=== PATIENT | male | born 1955 | race Caucasian/White ===

== ENCOUNTER 2016-03-16 10:45 | Emergency (ER) | payer OTHER ==
--- NOTE | 2016-03-16 11:13 | PROVIDER DOCUMENTATION ---
HPI-Respiratory General - General Chief Complaint: Shortness of Breath Stated Complaint: COPD/SOB Time Seen by Provider: 03/16/16 11:06 Source: patient Allergies/Adverse Reactions: Patient Allergies Allergy/AdvReac Type Severity Reaction Status Date / Time Penicillins Allergy Severe HIVES Verified 03/16/16 12:57 Home Medications: Tiotropium [place] Inhaler [Spiriva] 1 puff INH RTDAILY 07/29/13 Albuterol 2.5MG/Ipratrop 0.5MG [Duoneb (A & A)] 3 ml INH RTQ4H PRN 08/22/14 Fluticasone/Salmeterol [Advair 500-50 Diskus] 1 each IH QAM 08/22/14 Lisinopril/Hydrochlorothiazide [Zestoretic 20-12.5 mg Tablet] 2 tab PO QAM 08/22 Buprenorphine/Naloxone S.l. [Suboxone 2 mg/0.5 mg] 1 each SL QAM 02/18/16 Omeprazole [Prilosec] 40 mg PO QAM 02/18/16 - History of Present Illness-Resp Nature of Presenting Problem: patient is a 61 yo M that presents to the ER with shortness of breath that has gotten worse over the past few days. denies fever/chills, chest pain. history of COPD. has used breathing tx at home with no relief Quality of Pain: reports: tightness Severity in ED: reports: moderate Onset/Duration: reports: gradual, 3 days ago, 4 days ago Timing: reports: still present, getting worse Context: denies: recent URI, out of meds Cough Quality/Degree: reports: mild, moderate, dry cough Episode Frequency: chronic episodes Current Respiratory Medication Therapy: Initiated see nurses note Modifying Factors: worse with: exertion, coughing, lying down Associated Symptoms: reports: cough, shortness of breath, short of breath, wheezing. denies: fever/chills, flu-like symptoms, nasal congestion, nasal drainage Similar Symptoms Previously?: Yes Recently seen or treated by another doctor?: No Review of Systems - Adult - REVIEW OF SYSTEMS - ADULT Constitutional: denies: chills, fever Eyes: reports: no symptoms reported Ears, Nose, Mouth & Throat: denies: ear pain, sinus problem, throat pain, throat swelling Cardiovascular: denies: chest pain, palpitations Respiratory: reports: chronic cough, cough, dyspnea on exertion, shortness of breath, wheezing Gastrointestinal: denies: abdominal pain, diarrhea, nausea, vomiting Genitourinary: reports: no symptoms reported Musculoskeletal: reports: no symptoms reported Integumentary: reports: no symptoms reported Neurological: reports: no symptoms reported Psychiatric: reports: no symptoms reported Endocrine: reports: no symptoms reported Hematologic/Lymphatic: reports: no symptoms reported Allergic/Immunologic: reports: no symptoms reported All Other Systems: Reviewed and Negative Past History - Adult - PAST MEDICAL HISTORY-ADULT Review of Records: reports: Old Records Reviewed, Nursing Assessment Review, Medications Reviewed Cardiovascular: reports: HTN Respiratory: reports: COPD Other Conditions: reports: MRSA - PRIOR SURGERIES/PROCEDURES Surgical/Procedure History: reports: orthopedic (extremity) (clavicle) - PRIOR HOSPITALIZATIONS Prior Hospitalizations: reports: none - IMMUNIZATION STATUS Childhood Immunizations: See Nurse Assessment Flu Vaccine: See Nurse Assessment - FAMILY HISTORY Family History: reviewed, not pertinent - SOCIAL HISTORY Smoking: quit greater than 1 year, cigarettes Alcohol Use Frequency: occasionally Living Situation: family Physical Exam-General - PHYSICAL EXAM-ADULT Initial Vital Signs Reviewed: Yes - CONSTITUTIONAL General Appearance: alert, mild distress, moderate distress - EYES Eyes: PERRL/EOMI, pink conjunctivae - HEAD, EARS, NOSE, MOUTH & THROAT HENMT: normocephalic/atraumatic, moist mucous membranes, normal ENT inspection - NECK Neck: full range of motion, normal inspection. negative: lymphadenopathy - RESPIRATORY Respiratory: no accessory muscle use, respiratory distress (mild), decreased breath sounds, wheezing - CARDIOVASCULAR Cardiovascular: regular rate, rhythm, no JVD, no murmur, tachycardia - GASTROINTESTINAL (ABDOMEN) Abdominal Exam: normal bowel sounds, non tender, soft, no organomegaly, no pulsatile mass - MUSCULOSKELETAL Back Exam: no CVA tenderness, no vertebral tenderness Extremity: normal range of motion, normal inspection, no pedal edema, normal capillary refill, pelvis stable - SKIN Integumentary: normal color, warm/dry - NEUROLOGIC Neurologic: grossly normal, no motor/sensory deficits - PSYCHIATRIC Psych/Mental Status: normal mood/affect, normal thought content, normal thought process, oriented x 3 Progress - PLAN OF CARE/RESULTS Progress/Plan/Lab Results: plan of care-labs, meds, cxr, breathing tx Vital Signs Temp Pulse Resp BP Pulse Ox 03/16/16 12:29 83 18 94 L 03/16/16 11:35 100 H 21 186/105 89 L 03/16/16 10:54 98.1 F 108 H 24 199/142 95 Penicillins Allergy (Severe, Verified 03/16/16 12:57) HIVES Tiotropium [place] Inhaler [Spiriva] 1 puff INH RTDAILY 07/29/13 Albuterol 2.5MG/Ipratrop 0.5MG [Duoneb (A & A)] 3 ml INH RTQ4H PRN 08/22/14 Fluticasone/Salmeterol [Advair 500-50 Diskus] 1 each IH QAM 08/22/14 Lisinopril/Hydrochlorothiazide [Zestoretic 20-12.5 mg Tablet] 2 tab PO QAM 08/22 Buprenorphine/Naloxone S.l. [Suboxone 2 mg/0.5 mg] 1 each SL QAM 02/18/16 Omeprazole [Prilosec] 40 mg PO QAM 02/18/16 Laboratory 03/16/16 03/16/16 03/16/16 11:25 11:25 11:25 WBC RBC Hgb Hct MCV MCH MCHC RDW Std Deviation Plt Count MPV Immature Gran % (Auto) Neut % (Auto) Lymph % (Auto) [place] % (Auto) Eos % (Auto) Baso % (Auto) Immature Gran # (Auto) Neut # (Auto) Lymph # (Auto) [place] # (Auto) Eos # (Auto) Baso # (Auto) PT 10.7 INR 1.01 PTT (Actin FS) 28.7 Sodium Potassium Chloride Carbon Dioxide Anion Gap BUN Creatinine Estimated GFR/1.73 m2 BUN/Creatinine Ratio Glucose Calculated Osmolality Calcium Total Bilirubin AST ALT Alkaline Phosphatase Creatine Kinase Troponin T < 0.010 Total Protein Albumin Globulin Albumin/Globulin Ratio Plasma Lactate 1.3 03/16/16 03/16/16 11:25 11:25 WBC 7.49 RBC 3.80 L Hgb 12.0 L Hct 36.9 L MCV 97.1 MCH 31.6 H MCHC 32.5 L RDW Std Deviation 12.1 Plt Count 299 MPV 8.8 Immature Gran % (Auto) 0.0 Neut % (Auto) 71.4 Lymph % (Auto) 11.5 L [place] % (Auto) 15.6 H Eos % (Auto) 1.1 Baso % (Auto) 0.4 Immature Gran # (Auto) 0.00 Neut # (Auto) 5.35 Lymph # (Auto) 0.86 L [place] # (Auto) 1.17 H Eos # (Auto) 0.08 Baso # (Auto) 0.03 PT INR PTT (Actin FS) Sodium 132 L Potassium 3.8 Chloride 93 L Carbon Dioxide 26 Anion Gap 13 BUN 9 Creatinine 1.0 Estimated GFR/1.73 m2 > 60 BUN/Creatinine Ratio 9 Glucose 122 H Calculated Osmolality 265 Calcium 9.0 Total Bilirubin 0.46 AST 22 ALT 15 Alkaline Phosphatase 78 Creatine Kinase 115 Troponin T Total Protein 7.9 Albumin 4.1 Globulin 3.8 Albumin/Globulin Ratio 1.1 Plasma Lactate Orders Category Date Time Status Cardiac Monitoring DIRECTED Care 03/16/16 11:01 Active IV Insertion ORDERED Care 03/16/16 11:01 Active Notify MD of + Sepsis Screen NOW Care 03/16/16 11:01 Active CHEST-2 VIEWS [RAD] Stat Exams 03/16/16 11:01 Completed BLOOD CULTURE [BLDCUL] Stat Lab 03/16/16 11:27 Results CBC WITH DIFF [HEME] Stat Lab 03/16/16 11:25 Completed CK PROFILE [SP CHEM] Stat Lab 03/16/16 11:25 Completed COMPREHENSIVE METABOLIC PANEL [CHEM] Stat Lab 03/16/16 11:25 Completed LACTATE, PLASMA [CHEM] Stat Lab 03/16/16 11:25 Completed PROTIME WITH INR [COAG] Stat Lab 03/16/16 11:25 Completed PTT [COAG] Stat Lab 03/16/16 11:25 Completed TROPONIN T Stat Lab 03/16/16 11:25 Completed URINALYSIS W/POSS RFLX CULT [URINALYSIS] Stat Lab 03/16/16 11:01 Uncollected Albuterol 2.5MG/Ipratrop 0.5MG [Duoneb (A & A)] Med 03/16/16 11:14 Discontinued 3 ml INH NOW ONE Albuterol 2.5MG/Ipratrop 0.5MG [Duoneb (A & A)] Med 03/16/16 12:15 Discontinued 3 ml INH NOW ONE Methylprednisolone Sod Succ [Solu-Medrol] Med 03/16/16 11:16 Discontinued 125 mg IV NOW ONE Aerosol Treatments Routine Oth 03/16/16 11:14 Completed Aerosol Treatments Routine Oth 03/16/16 12:15 Completed Aerosol Treatments Stat Oth 03/16/16 11:14 Completed Aerosol Treatments Stat Oth 03/16/16 12:15 Completed Oxygen Device Stat Oth 03/16/16 11:01 Active EKG [EKG] Stat Ther 03/16/16 11:05 Draft pt will be d/c home f/u with pcp, rx given, pt was clinically stable, pt understood results and instructions. - REASSESSMENT Reassessment #1 Time Reassessed: 12:57 Status: improving Reassessment Comment: feels better, wants to go home - EKG 1 Time of EKG reading by physician:: 11:10 EKG Read and Signed by:: Aure Helton EKG Interpretation (*Must complete 3 of following elements*): Normal Rate: 97 Rhythm: NSR [place]: normal QRS: normal [place] Interval: normal ST Wave: normal - XRAY 1 XRAY Study: Chest Impression: Abnormal XRAY Interpretation: stable chest, azygous lobe Departure - Departure Time of Disposition Order: 12:57 DIAGNOSIS: COPD with exacerbation Disposition: HOME 01 Certified Medical Emergency: Emergent Condition: Stable Additional Instructions: ED Follow Up Instructions: You have been treated by a care provider in the Emergency Department. These instructions are being provided to you so you can have an understanding of how to care for yourself upon discharge. Upon discharge from the Emergency Department, you are responsible for making arrangements for follow-up care by a physician of your choice. Take all prescribed medications as directed. Return to the Emergency Department immediately for any new or worsening symptoms. You may call the Physician Referral phone number at [phone] to obtain a list of Physicians who are taking new patients. Instructions: Chronic Obstructive Pulmonary Disease Exacerbation, [id number] Attestation - Scribe Verification/Attestation Scribe:: Marito Aceves Acting as Scribe for:: Mckenzie Arreola Scribe documention review:: This chart was documented by a scribe and accurately reflects the service the provider performed and the decisions made by the provider. Physician Attestation - Physician Attestation I, the provider, attest to the following statement:: Mckenzie Arreola Physician documentation Attestation:: This documentation recorded by the scribe accurately reflects the service I personally performed and the decisions made by me.
[2016-03-16] MEDS ORDERED: DUONEB (A & A) INH ONE ×2 (11:14→12:15)
[2016-03-16] MEDS ORDERED: SOLU-MEDROL IV ONE ×2 (11:16→13:00)
[2016-03-16 11:37] VITALS: BP 186/105
[2016-03-16 11:39] LABS: MANUAL DIFF NEEDED? NO
--- NOTE | 2016-03-16 11:44 | EKG Report ---
Test Performed on : 03/16/2016 11:10:20 AM Test Reason : SOB Blood Pressure : / mmHG Vent. Rate : 097 BPM Atrial Rate : 097 BPM P-R Int : 160 ms QRS Dur : 082 ms QT Int : 330 ms P-R-T Axes : 048 013 053 degrees QTc Int : 419 ms Normal sinus rhythm. Normal ECG When compared with ECG of 16-MAR-2016 11:09, (Unconfirmed) No significant change was found Unconfirmed Result
[2016-03-16 11:58] LABS: BASO% 0.4 % (0.0-0.8); EOS# 0.08 X1000 (0.0-0.7); EOS% 1.1 % (0.0-10.0); HEMATOCRIT 36.9 % (42.0-52.0); LYMPH# 0.86 X1000 (1.2-3.4); LYMPH% 11.5 % (20.5-51.1); MCH 31.6 PG (27-31); MCHC 32.5 g/dL (33-37); MCV 97.1 FL (81-99); MONO# 1.17 X1000 (0.11-0.59); MONO% 15.6 % (1.7-9.3); MPV 8.8 FL (7.4-10.4); NEUT% 71.4 % (42.2-75.2); PLT 299 X1000 (130-400)
[2016-03-16 12:08] LABS: AGAP 13; ALBUMIN 4.1 g/dL (3.5-5.0); ALKALINE PHOSPHATASE 78 U/L (32-122); BUN 9 mg/dL (8-22); CHLORIDE 93 mmol/L (98-107); CK PROFILE 115 U/L (24-204); COSMO 265; GOT 22 U/L (10-34); GPT 15 U/L (10-44); POTASSIUM 3.8 mmol/L (3.5-5.1); SODIUM 132 mmol/L (136-145); TCO2 26 mmol/L (25-35); TOTAL BILIRUBIN 0.46 mg/dL (0.20-1.00); TOTAL PROTEIN 7.9 g/dL (6.3-8.3)
[2016-03-16 12:10] LABS: INR 1.01; PROTIME 10.7 Seconds (9.2-11.7); PTT 28.7 Seconds (22.0-36.0)
--- NOTE | 2016-03-16 12:35 | Diag Imaging Result Document ---
PROCEDURE NAME: CHEST-2 VIEWS - 03/16/2016 TWO VIEWS OF THE CHEST: FINDINGS: There is an azygous lobe. There has been no significant change in the appearance of the chest since the previous study of 02/18/2016. IMPRESSION: Stable chest.
== END 2016-03-16 13:12 | disposition home or self-care (01) ==
LOC: ED 10:45
DX: J44.1 Chronic obstructive pulmonary disease with (acute) exacerbation (principal); R06.02 Shortness of breath; R05 Cough; R06.2 Wheezing; R06.00 Dyspnea, unspecified; R00.0 Tachycardia, unspecified; I10 Essential (primary) hypertension; Z79.51 Long term (current) use of inhaled steroids; Z79.899 Other long term (current) drug therapy; Z86.14 Personal history of Methicillin resistant Staphylococcus aureus infection; Z87.891 Personal history of nicotine dependence
CPT/HCPCS: 71020; 80053; 82550; 83605; 84484; 85025; 85610; 85730; 87040; 93005; 94640; 96374; 96376; J2930

== ENCOUNTER 2016-08-25 03:42 | Inpatient (IN) ==
[2016-08-26 14:05] VITALS: BP 133/79
== END 2016-08-26 15:55 | disposition home or self-care (01) ==
LOC: ED 03:42 → 3N 06:27 → SUATTDRO 06:27
PROVIDERS: ATTEND Emergency Medicine

== ENCOUNTER 2016-09-23 15:52 | Inpatient (IN) ==
[2016-09-23] MEDS ORDERED: ATROVENT NEB INH ONE (16:00)
[2016-09-23] MEDS ORDERED: SOLU-MEDROL IV ONE (16:00)
[2016-09-23] MEDS ORDERED: ALBUTEROL NEB INH ONE (16:00)
[2016-09-23 16:37] LABS: MANUAL DIFF NEEDED? NO
[2016-09-23 16:43] LABS: ALLEN TEST YES; BE 6.6 mmoll (-3.0-3.0); BLOOD TYPE ARTERIAL; DRAW SITE R RADIAL; METHB 0.8 % (0.0-1.5); O2(CT) 17.8 mL/dL (15.0-23.0); PO2(98.6) 88 mmHg (60-100); SAMPLE BLOOD; SAO2 97.9 % (95.0-100.0); THB 13.3 g/dL (11.5-17.4); pH(98.6) 7.32 (7.35-7.45)
[2016-09-23 16:46] LABS: MODALITY CANNULA; PCO2(98.6) 68 mmHg (35-45)
[2016-09-23 16:49] LABS: BASO% 0.8 % (0.0-0.8); EOS# 0.76 X1000 (0.0-0.7); EOS% 9.1 % (0.0-10.0); HEMATOCRIT 37.9 % (42.0-52.0); HEMOGLOBIN 12.5 g/dL (14.0-18.0); IMM GRAN# 0.02 X1000 (0.0-0.04); IMM GRAN% 0.2 % (0.0-0.5); LYMPH# 1.41 X1000 (1.2-3.4); LYMPH% 16.8 % (20.5-51.1); MCH 31.9 PG (27-31); MCV 96.7 FL (81-99); MONO# 0.64 X1000 (0.11-0.59); MONO% 7.6 % (1.7-9.3); NEUT% 65.5 % (42.2-75.2); PLT 340 X1000 (130-400); RBC 3.92 XMIL (4.7-6.1)
--- NOTE | 2016-09-23 16:50 | Diag Imaging Result Doc PS360 ---
EXAM: CHEST-PORTABLE HISTORY: dyspnea TECHNIQUE: AP erect portable at 1648 COMMENT: There is an azygos lobe. There is COPD. The costophrenic angles are not included on the image. Compared to 08/25/2016 there has been no significant change. IMPRESSION: COPD. Electronically signed by Onofre Flynn 09/23/2016 4:48 PM
[2016-09-23 16:55] LABS: INR 0.96; PROTIME 10.1 Seconds (9.2-11.7); PTT 30.1 Seconds (22.0-36.0)
[2016-09-23 17:04] LABS: AGAP 9; ALBUMIN 4.1 g/dL (3.5-5.0); ALKALINE PHOSPHATASE 78 U/L (32-122); BUN 12 mg/dL (8-22); CALCIUM 9.2 mg/dL (8.8-10.2); CHLORIDE 89 mmol/L (98-107); COSMO 261; GOT 19 U/L (10-34); GPT 13 U/L (10-44); POTASSIUM 4.4 mmol/L (3.5-5.1); SODIUM 130 mmol/L (136-145); TCO2 32 mmol/L (25-35); TOTAL PROTEIN 8.1 g/dL (6.3-8.3)
--- NOTE | 2016-09-23 17:10 | PROVIDER DOCUMENTATION ---
HPI-General Adult - General Chief Complaint: Shortness of Breath Stated Complaint: sob/copd Time Seen by Provider: 09/23/16 15:59 Source: patient, EMS Allergies/Adverse Reactions: Patient Allergies Allergy/AdvReac Type Severity Reaction Status Date / Time Penicillins Allergy Severe HIVES Verified 09/23/16 17:15 Home Medications: Home Medication List Medication Instructions Recorded Confirmed Last Taken Type Tiotropium [place] Inhaler 1 puff INH RTDAILY 07/29/13 09/23/16 09/23/16 History [Spiriva] Fluticasone/Salmeterol [Advair 1 each IH QAM 08/22/14 09/23/16 09/23/16 History 500-50 Diskus] Buprenorphine HCl/Naloxone HCl 12 mg PO Q12HR 03/18/16 09/23/16 09/23/16 History [Suboxone 8 mg/2 mg Sl Film] Lisinopril 40 mg PO DAILY 03/18/16 09/23/16 09/23/16 History Omeprazole [Prilosec] 20 mg PO DAILY@0700 03/18/16 09/23/16 09/23/16 History Hydrochlorothiazide 1 tab PO DAILY 05/30/16 09/23/16 09/23/16 History Albuterol 2.5MG/Ipratrop 0.5MG 3 ml INH Q4H PRN PRN #120 neb 08/26/16 09/23/16 09/23/16 Rx [Duoneb (A & A)] - History of Present Illness -Gen Adult Nature of Presenting Problems: pt presents complaining of two day history of dyspnea, wheeze. He endorses mild nonproductive cough. EMS states spo2 in 70s on arrival. 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 no cp, fever, back pain, LE edema, headache, vision problems. Using home nebs s relief. Location of Pain/Injury: reports: none Pain Radiation: reports: no radiation Quality of Pain: reports: none Timing: reports: getting worse Modifying Factors: improves with: nothing Associated Symptoms: reports: shortness of breath. denies: chest pain, cough, diarrhea, fever/chills, headaches, nausea, syncope, vomiting Similar Symptoms Previously?: Yes Recently seen or treated by another doctor?: No Review of Systems - Adult - REVIEW OF SYSTEMS - ADULT Constitutional: reports: no symptoms reported Eyes: reports: no symptoms reported Ears, Nose, Mouth & Throat: reports: no symptoms reported Cardiovascular: reports: no symptoms reported Respiratory: reports: see HPI Gastrointestinal: reports: no symptoms reported Genitourinary: reports: no symptoms reported Musculoskeletal: reports: no symptoms reported Integumentary: reports: no symptoms reported Neurological: reports: no symptoms reported Psychiatric: reports: no symptoms reported Endocrine: reports: no symptoms reported Hematologic/Lymphatic: reports: no symptoms reported Allergic/Immunologic: reports: no symptoms reported All Other Systems: Reviewed and Negative Past History - Adult - PAST MEDICAL HISTORY-ADULT Review of Records: reports: Old Records Reviewed, Nursing Assessment Review, Medications Reviewed, Social history reviewed & non-contributory. Major Childhood Illnesses: reports: denies history Cardiovascular: reports: HTN Respiratory: reports: COPD Gastrointestinal: reports: denies history Obstetrical/Gynecological: reports: denies history Genitourinary: reports: denies history Musculoskeletal: reports: denies history Neurological: reports: denies history Endocrine/Immune: reports: denies history Other Conditions: reports: MRSA - PRIOR SURGERIES/PROCEDURES Surgical/Procedure History: reports: orthopedic (extremity) (clavicle) - PRIOR HOSPITALIZATIONS Prior Hospitalizations: reports: none - IMMUNIZATION STATUS Childhood Immunizations: See Nurse Assessment Flu Vaccine: See Nurse Assessment - FAMILY HISTORY Family History: reviewed, not pertinent Physical Exam-General - PHYSICAL EXAM-ADULT Initial Vital Signs Reviewed: Yes - CONSTITUTIONAL General Appearance: mild distress. negative: appears well - EYES Eyes: PERRL/EOMI, pink conjunctivae - HEAD, EARS, NOSE, MOUTH & THROAT HENMT: normocephalic/atraumatic, moist mucous membranes - NECK Neck: non-tender, full range of motion - RESPIRATORY Respiratory: chest non-tender, decreased breath sounds, wheezing - CARDIOVASCULAR Cardiovascular: normal peripheral pulses, regular rate, rhythm, no edema - GASTROINTESTINAL (ABDOMEN) Abdominal Exam: normal bowel sounds - LYMPHATIC Lymphatic: no adenopathy - MUSCULOSKELETAL Back Exam: normal inspection Extremity: normal range of motion, non-tender. negative: calf tenderness Peripheral Pulses: radial (R): 2+, radial (L): 2+ - SKIN Integumentary: normal color, normal turgor, warm/dry - NEUROLOGIC Neurologic: grossly normal - PSYCHIATRIC Psych/Mental Status: normal mood/affect, normal thought process Progress - PLAN OF CARE/RESULTS Progress/Plan/Lab Results: Vital Signs - 8 hr 09/23/16 16:37 09/23/16 16:55 Temperature 98.2 F Pulse Rate 99 H 101 H Respiratory Rate 20 24 Blood Pressure 137/80 O2 Sat by Pulse Oximetry 95 96 Laboratory Results - last 24 hr 09/23/16 09/23/16 09/23/16 16:15 16:15 16:15 WBC 8.38 RBC 3.92 L Hgb 12.5 L Hct 37.9 L MCV 96.7 MCH 31.9 H MCHC 33.0 RDW Std Deviation 12.8 Plt Count 340 MPV 9.0 Immature Gran % (Auto) 0.2 Neut % (Auto) 65.5 Lymph % (Auto) 16.8 L [place] % (Auto) 7.6 Eos % (Auto) 9.1 Baso % (Auto) 0.8 Immature Gran # (Auto) 0.02 Neut # (Auto) 5.48 Lymph # (Auto) 1.41 [place] # (Auto) 0.64 H Eos # (Auto) 0.76 H Baso # (Auto) 0.07 PT 10.1 INR 0.96 PTT (Actin FS) 30.1 Specimen Type Sample Site pH pCO2 pO2 HCO3 Base Excess Oxyhemoglobin ABG O2 Sat (Calculated) ABG O2 Saturation ABG Carboxyhemoglobin ABG Methemoglobin Kyrie Test A-a O2 Difference Total Hemoglobin Lactate Liter Flow Blood Gas Modality FiO2 % Sodium 130 L Potassium 4.4 Chloride 89 L Carbon Dioxide 32 Anion Gap 9 BUN 12 Creatinine 0.9 Estimated GFR/1.73 m2 > 60 BUN/Creatinine Ratio 13 Glucose 104 Calculated Osmolality 261 Calcium 9.2 Total Bilirubin 0.30 AST 19 ALT 13 Alkaline Phosphatase 78 Troponin T Total Protein 8.1 Albumin 4.1 Globulin 4.0 Albumin/Globulin Ratio 1.0 Plasma Lactate 09/23/16 09/23/16 09/23/16 16:15 16:15 16:25 WBC RBC Hgb Hct MCV MCH MCHC RDW Std Deviation Plt Count MPV Immature Gran % (Auto) Neut % (Auto) Lymph % (Auto) [place] % (Auto) Eos % (Auto) Baso % (Auto) Immature Gran # (Auto) Neut # (Auto) Lymph # (Auto) [place] # (Auto) Eos # (Auto) Baso # (Auto) PT INR PTT (Actin FS) Specimen Type ARTERIAL Sample Site R RADIAL pH 7.32 L pCO2 68 H* pO2 88 HCO3 30.0 H Base Excess 6.6 H Oxyhemoglobin 95.0 ABG O2 Sat (Calculated) 17.8 ABG O2 Saturation 97.9 ABG Carboxyhemoglobin 2.20 ABG Methemoglobin 0.8 Kyrie Test YES A-a O2 Difference 112.0 Total Hemoglobin 13.3 Lactate 1.00 Liter Flow 5.0 Blood Gas Modality [place] FiO2 % 40.0 Sodium Potassium Chloride Carbon Dioxide Anion Gap BUN Creatinine Estimated GFR/1.73 m2 BUN/Creatinine Ratio Glucose Calculated Osmolality Calcium Total Bilirubin AST ALT Alkaline Phosphatase Troponin T < 0.010 Total Protein Albumin Globulin Albumin/Globulin Ratio Plasma Lactate 1.0 Orders Category Date Time Status Oxygen Therapy- ED Nursing DIRECTED Care 09/23/16 16:00 Active Saline Loc DIRECTED Care 09/23/16 16:00 Active cxr [CHEST-PORTABLE] [RAD] Stat Exams 09/23/16 16:05 Completed ABG [RESP] Routine Lab 09/23/16 16:25 Completed BLOOD CULTURE [BLDCUL] Stat Lab 09/23/16 16:20 Received CBC WITH DIFF [HEME] Stat Lab 09/23/16 16:15 Completed COMPREHENSIVE METABOLIC PANEL [CHEM] Stat Lab 09/23/16 16:15 Completed LACTATE, PLASMA [CHEM] Stat Lab 09/23/16 16:15 Completed PROTIME WITH INR [COAG] Stat Lab 09/23/16 16:15 Completed PTT [COAG] Stat Lab 09/23/16 16:15 Completed TROPONIN T Stat Lab 09/23/16 16:15 Completed Albuterol [Albuterol Neb] Med 09/23/16 16:00 Discontinued 7.5 mg INH NOW ONE Ipratropium [place] Neb [Atrovent Neb] Med 09/23/16 16:00 Discontinued 0.5 mg INH NOW ONE Methylprednisolone Sod Succ [Solu-Medrol] Med 09/23/16 16:00 Discontinued 125 mg IV NOW ONE Aerosol Treatments Stat Oth 09/23/16 16:00 Completed Pulse Oximetry Stat Oth 09/23/16 16:00 Active EKG [EKG] Stat Ther 09/23/16 16:00 Ordered case and plan of care discussed with Dr. Wang Result Diagrams: 09/23/16 16:15 09/23/16 16:15 - XRAY 1 XRAY Study: Chest Impression: See EMR Report XRAY Interpretation: COPD; NAF - CONSULTS/PCP/HOSPITALIST Notification #1 *Consult/PCP/Hospitalist*: Dr. Kirby Time Discussed: 17:25 Reason/Comments: hold abx Consult Disposition: Admit Departure - Departure Date of Disposition Decision: 09/23/16 Time of Disposition Decision: 17:26 DIAGNOSIS: COPD exacerbation Disposition: ADMITTED INPATIENT 09 Certified Medical Emergency: Emergent Condition: Stable - Critical Care Note This patient required my direct & personal management of CC.: No Attestation - Physician/ ANTHONY Attestation Patient care was provided by Advanced Practice Provider:: Yes Advanced Practice Provider:: Balta Carroll Advanced Practice Provider documentation review:: The Mid-level provider documentation, treatment plan and medical decision making was reviewed by the physician who agrees with all treatment and medical decision making by the MLP.
[2016-09-23] MEDS ORDERED: DUONEB (A & A) INH ONE (17:24)
[2016-09-23] MEDS ORDERED: TYLENOL PO PRN (19:21)
[2016-09-23] MEDS ORDERED: SUBOXONE 2 MG/0.5 MG SL SCH (19:45)
[2016-09-23] MEDS ORDERED: SUBOXONE 8 MG/2 MG SL SCH (21:00)
[2016-09-23] MEDS: SUBOXONE 8 MG/2 MG SL SCH (21:06)
[2016-09-23] MEDS: LEVAQUIN 500 MG/D5W 500 MG/100 ML IVPB IV SCH (21:06)
[2016-09-23] MEDS: SUBOXONE 2 MG/0.5 MG SL SCH (21:07)
[2016-09-23] MEDS: SOLU-MEDROL IV SCH (23:00)
[2016-09-23] MEDS: DUONEB (A & A) INH PRN (23:30)
[2016-09-24] MEDS: DUONEB (A & A) INH PRN ×5 (04:26→22:36)
[2016-09-24] MEDS: SOLU-MEDROL IV SCH ×6 (06:28→23:03)
[2016-09-24] MEDS: PRILOSEC PO SCH (06:29)
--- NOTE | 2016-09-24 06:32 | EKG Report ---
Test Performed on : 09/23/2016 4:42:03 PM Test Reason : dyspnea Blood Pressure : / mmHG Vent. Rate : 089 BPM Atrial Rate : 089 BPM P-R Int : 166 ms QRS Dur : 082 ms QT Int : 348 ms P-R-T Axes : 064 034 066 degrees QTc Int : 423 ms Normal sinus rhythm. Normal ECG When compared with ECG of 25-AUG-2016 04:11, No significant change was found Unconfirmed Result
--- NOTE | 2016-09-24 06:41 | HISTORY AND PHYSICAL ---
HISTORY OF PRESENT ILLNESS: This is a 61-year-old who presented with shortness of breath. States that for the last 2 days, he has become more short of breath and just gets short of breath going from room to room. He does have, I believe, home O2 and he has been wearing it. He has been taking his medicine as directed. He denies any fever or chills. No pleuritic pain. His cough has been whitish sputum, not really changing color. No blood in the sputum. PAST MEDICAL HISTORY: COPD, hypertension, hepatitis C, chronic opioid use. Last here on 08/25/2016. He has had frequent admissions. Also in past history, he has had a pericardial effusion in the past. PAST SURGICAL HISTORY: None. ALLERGIES: Penicillin. CURRENT MEDICATIONS: According to the list he brought, he is taking albuterol, DuoNebs. He is on Suboxone 8/2 sublingual film 12 mg p.o. q.8 hours, Advair 500/50 one puff q.a.m., hydrochlorothiazide 1 tablet daily, lisinopril 40 mg a day, Prilosec 20 mg a day, and Spiriva 1 mg daily. SOCIAL HISTORY: Former smoker. History of social alcohol. Chronic opioid use for pain. FAMILY HISTORY: Positive for coronary artery disease. REVIEW OF SYSTEMS: General: Denies any weight gain or loss. No fever or chills. HEENT: Unremarkable. Respiratory: No increased work of breathing or dyspnea. Cardiovascular: No chest pain or tachy palpitation. GI/: No significant complaints. Respiratory: As noted above, he had increased shortness of breath in the last 2 days with whitish sputum. No pleuritic pain. PHYSICAL EXAMINATION: VITAL SIGNS: Today, temperature 98.2 degrees, pulse 92, respirations 18, blood pressure 118/80, O2 saturation 95%. HEENT: Pupils are equal and round. LUNGS: Clear in all lung hope. Decreased breath sounds in both bases. Prolonged expiratory phase 1.1, to inspiratory phase 1.5 to 1. CARDIOVASCULAR EXAMINATION: Regular rhythm and rate without murmur or S3. ABDOMEN: Soft. SKIN: Warm and dry. WEIGHT AND HEIGHT: Weight 230 pounds. Height 6 feet. ABDOMEN: Soft, nondistended, and nontender. Positive bowel sounds. No hepatosplenomegaly. EXTREMITIES: No clubbing, cyanosis, or edema. LABORATORY DATA: White count 8380, hematocrit 37, platelet count 340,000. Sodium 130, potassium 4.4, chloride 89, bicarb 32, BUN 12, creatinine 0.9, blood sugar 104. Transaminases unremarkable. Albumin 4.1. Prothrombin time 10, PTT 30. Blood gases, pH of 7.32, pCO2 68, PO2 is 88, O2 saturation was 97%. That was on 40% FiO2. Chest x-ray: COPD. No infiltrates. There is an azygos lobe, costophrenic angles are not included on the image. No significant change from previous chest x-ray a couple months ago. ASSESSMENT AND PLAN: 1. Exacerbation of chronic obstructive pulmonary disease, bronchospasm. Suspect some bronchitis. We will put him on steroid inhalers, aggressive alpha agonist and continue his current inhalers with tiotropium as well. I will give him a dose of Levaquin empirically and put him on some Solu-Medrol. 2. Chronic opioid use and dependence. Keep him on Suboxone. 3. Hypertension. Watch his blood pressure. 4. Chronic hepatitis C. Aware. cc: Kyrie Schafer MD
[2016-09-24] MEDS: SUBOXONE 8 MG/2 MG SL SCH ×2 (08:41→21:26)
[2016-09-24] MEDS: PRINIVIL PO SCH (08:41)
[2016-09-24] MEDS: HYDROCHLOROTHIAZIDE PO SCH (08:41)
[2016-09-24] MEDS: SUBOXONE 2 MG/0.5 MG SL SCH ×2 (08:51→21:25)
[2016-09-24] MEDS: ADVAIR 500/50 DISKUS INH SCH (11:56)
[2016-09-24] MEDS: SPIRIVA INH SCH (11:56)
[2016-09-24 17:03] LABS: BLOOD TYPE ARTERIAL; SAMPLE BLOOD
[2016-09-24 17:09] LABS: ALLEN TEST YES; BE 7.3 mmoll (-3.0-3.0); DRAW SITE L RADIAL; METHB 1.2 % (0.0-1.5); O2(CT) 16.1 mL/dL (15.0-23.0); PO2(98.6) 68 mmHg (60-100); SAO2 95.2 % (95.0-100.0); THB 12.4 g/dL (11.5-17.4); pH(98.6) 7.34 (7.35-7.45)
[2016-09-24 17:10] LABS: MODALITY CANNULA; PCO2(98.6) 65 mmHg (35-45)
--- NOTE | 2016-09-24 17:33 | PROGRESS NOTE ---
DATE: 09/24/2016 SUBJECTIVE: His breathing is better, but still feels a little short of breath. Still some wheezing. Remains afebrile. OBJECTIVE: Vital signs: Pulse 100, respirations 20, blood pressure 150/81. Lungs: Clear and expiration phase is equal to inspiration phase. Cardiovascular: Regular rhythm and rate without murmur or S3. Abdomen: Soft. Skin: Warm and dry. : Urine output 800 mL. LABORATORIES: Reviewed from yesterday, troponin and CPK were negative. ASSESSMENT AND PLAN: 1. Chronic obstructive pulmonary disease exacerbation with some bronchospasm. I do not see any sign of infection. Possible bronchitis, but no purulent sputum. Continue Solu-Medrol and we did treat with some Levaquin condition in addition to bronchodilators and O2 supplement and steroid inhaler. 2. Chronic opioid use. He is on Suboxone. 3. Hypertension. 4. History of chronic hepatitis C. Clinical improvement. Possibly could think about going home tomorrow. I decreased the Solu-Medrol. cc: Kyrie Schafer MD
[2016-09-24] MEDS: LEVAQUIN 500 MG/D5W 500 MG/100 ML IVPB IV SCH (21:26)
[2016-09-24] MEDS ORDERED: NS 250 ML ONE (22:41)
[2016-09-25] MEDS: DUONEB (A & A) INH PRN ×6 (03:59→22:42)
[2016-09-25] MEDS: SOLU-MEDROL IV SCH ×2 (05:47→18:27)
[2016-09-25] MEDS: PRILOSEC PO SCH ×2 (05:47→06:48)
[2016-09-25] MEDS: SPIRIVA INH SCH (07:35)
[2016-09-25] MEDS: ADVAIR 500/50 DISKUS INH SCH (07:35)
[2016-09-25] MEDS: PRINIVIL PO SCH (09:23)
[2016-09-25] MEDS: HYDROCHLOROTHIAZIDE PO SCH (09:23)
[2016-09-25] MEDS: SUBOXONE 8 MG/2 MG SL SCH ×2 (09:26→20:27)
[2016-09-25] MEDS: SUBOXONE 2 MG/0.5 MG SL SCH ×2 (09:27→20:27)
[2016-09-25] MEDS ORDERED: LASIX IV ONE (15:08)
--- NOTE | 2016-09-25 16:34 | PROGRESS NOTE ---
DATE: 09/25/2016 Mr. Mccormack is breathing better. He was wondering if I could write a prescription for CPAP but he is asking to go home tomorrow as well. He is much more awake and eating well. I did decrease his Suboxone. Temp 97.4 degrees, pulse 79, respirations 18, blood pressure 130/72.HEENT: Pupils are equal, round. Lungs: Are clear in all lung hope. Cardiovascular: Regular rhythm and rate without murmur or S3. Abdomen: Soft. Skin: Is warm and dry. Urine output 2 L. LAB: Reviewed. Sodium 130, potassium 4.4, chloride 89, BUN 12, creatinine 0.9. His troponin was less than 0.01. Hematocrit 37. ASSESSMENT/PLAN: 1. Chronic obstructive pulmonary disease exacerbation. Some bronchospasm. I think some of it he was somnolent from his Suboxone which we decreased. Continue Solu-Medrol, bronchodilators and O2 supplement. Apparently he has had a sleep study before. May need to pursue CPAP. 1. Chronic opioid use. I think we need to reduce his Suboxone. I think it is interfering with his breathing and I do not think he is coughing and I think he stays lethargic. 2. Hypertension. 3. Chronic hepatitis C. Aware. Looking over his medications we will cut down his methylprednisone a little bit more. cc: Kyrie Schafer MD
[2016-09-26] MEDS: DUONEB (A & A) INH PRN ×2 (03:49→07:48)
[2016-09-26] MEDS: PRILOSEC PO SCH (06:30)
[2016-09-26] MEDS: SOLU-MEDROL IV SCH (06:30)
[2016-09-26] MEDS: ADVAIR 500/50 DISKUS INH SCH (07:48)
[2016-09-26] MEDS: SPIRIVA INH SCH (07:48)
[2016-09-26 08:40] VITALS: BP 109/76
[2016-09-26] MEDS: PRINIVIL PO SCH (10:35)
[2016-09-26] MEDS: HYDROCHLOROTHIAZIDE PO SCH (10:39)
[2016-09-26] MEDS: SUBOXONE 2 MG/0.5 MG SL SCH (10:50)
[2016-09-26] MEDS: SUBOXONE 8 MG/2 MG SL SCH (10:51)
--- NOTE | 2016-09-26 11:42 | DISCHARGE SUMMARY ---
ADMISSION DATE: 09/23/2016 DISCHARGE DATE: 09/26/2016 This is a 61-year-old presented with shortness of breath. For the last 2 days he has gotten more short of breath and presented to the emergency room where he had pretty good deal of bronchospasm and CO2 retention. So his past medical history is COPD, hypertension, hepatitis C and chronic opioid use. Has been here several times for respiratory trouble. He is on Suboxone. He remained pretty lethargic the 1st 24 hours so I decreased his Suboxone and had some discussions about how I feel like he needs to go down on that medication. Whether he will or not I do not know. He improved. He had good CO2 retention. They were thinking about BiPAP but after reducing the Suboxone he seemed to show good improvement. Good air exchange. Wheezing went away. I will send him home with a [employer] Dosepak. Continue his current bronchodilators. Did not show any sign of bacterial infection. His home medication is albuterol or DuoNeb, a combination albuterol and ipratropium as needed at home. He is on Suboxone 8 mg-2 sublingual film. I strongly recommend he come off of it or reduce it dramatically. Advair 500/50 Diskus 1 puff q.a.m. Hydrochlorothiazide 1 tab a daily. Lisinopril 40 mg a day. Prilosec 20 mg a day, Spiriva 1 puff daily. I want him to find a primary care and follow up with them. Encourage p.o. intake. cc: Kyrie Schafer MD
== END 2016-09-26 12:07 | disposition home health service (06) ==
LOC: ED 15:52 → 3N 18:36
PROVIDERS: ATTEND Emergency Medicine

== ENCOUNTER 2016-11-10 22:38 | Inpatient (IN) ==
[2016-11-10] MEDS ORDERED: ALBUTEROL NEB INH ONE (23:05)
[2016-11-10] MEDS ORDERED: SOLU-MEDROL IV ONE (23:05)
[2016-11-10] MEDS ORDERED: DUONEB (A & A) INH ONE (23:05)
[2016-11-10 23:26] LABS: MANUAL DIFF NEEDED? NO
[2016-11-10 23:30] LABS: BASO% 0.8 % (0.0-0.8); EOS# 0.92 X1000 (0.0-0.7); EOS% 10.9 % (0.0-10.0); HEMATOCRIT 39.2 % (42.0-52.0); LYMPH# 2.02 X1000 (1.2-3.4); LYMPH% 23.9 % (20.5-51.1); MCH 31.8 PG (27-31); MCHC 33.2 g/dL (33-37); MCV 95.8 FL (81-99); MONO# 0.67 X1000 (0.11-0.59); MONO% 7.9 % (1.7-9.3); MPV 9.1 FL (7.4-10.4); NEUT% 56.5 % (42.2-75.2); PLT 342 X1000 (130-400); RBC 4.09 XMIL (4.7-6.1)
[2016-11-10 23:42] LABS: AGAP 13; ALBUMIN 4.1 g/dL (3.5-5.0); ALKALINE PHOSPHATASE 80 U/L (32-122); BUN 12 mg/dL (8-22); CALCIUM 9.5 mg/dL (8.8-10.2); CHLORIDE 88 mmol/L (98-107); COSMO 266; GOT 17 U/L (10-34); GPT 10 U/L (10-44); POTASSIUM 4.8 mmol/L (3.5-5.1); SODIUM 133 mmol/L (136-145); TCO2 32 mmol/L (25-35); TOTAL BILIRUBIN 0.27 mg/dL (0.20-1.00); TOTAL PROTEIN 8.1 g/dL (6.3-8.3)
[2016-11-10 23:58] LABS: ALLEN TEST YES; BE 6.4 mmoll (-3.0-3.0); BLOOD TYPE ARTERIAL; DRAW SITE R BRACHIAL; METHB 0.9 % (0.0-1.5); O2(CT) 17.9 mL/dL (15.0-23.0); PO2(98.6) 73 mmHg (60-100); SAMPLE BLOOD; SAO2 96.2 % (95.0-100.0); THB 13.7 g/dL (11.5-17.4); pH(98.6) 7.37 (7.35-7.45)
[2016-11-11] LABS: MODALITY CANNULA; PCO2(98.6) 58 mmHg (35-45)
[2016-11-11] MEDS ORDERED: ALBUTEROL NEB INH ONE (00:19)
--- NOTE | 2016-11-11 00:25 | PROVIDER DOCUMENTATION ---
This chart was entered by Cary Terry Scribe, acting as scribe for Faraz Bourne MD. HPI-Respiratory General - General Chief Complaint: Shortness of Breath Stated Complaint: SOB/COPD Time Seen by Provider: 11/10/16 23:01 Source: patient Allergies/Adverse Reactions: Patient Allergies Allergy/AdvReac Type Severity Reaction Status Date / Time Penicillins Allergy Severe HIVES Verified 09/23/16 17:15 Home Medications: Home Medication List Medication Instructions Recorded Confirmed Last Taken Type Tiotropium [place] Inhaler 1 puff INH RTDAILY 07/29/13 11/10/16 11/10/16 06:00 History [Spiriva] Fluticasone/Salmeterol [Advair 1 each IH QAM 08/22/14 11/10/16 11/10/16 06:00 History 500-50 Diskus] Buprenorphine HCl/Naloxone HCl 12 mg PO Q12HR 03/18/16 11/10/16 11/10/16 18:00 History [Suboxone 8 mg/2 mg Sl Film] Lisinopril 40 mg PO DAILY 03/18/16 11/10/16 11/10/16 06:00 History Omeprazole [Prilosec] 20 mg PO DAILY@0700 03/18/16 11/10/16 11/10/16 06:00 History Hydrochlorothiazide 1 tab PO DAILY 05/30/16 11/10/16 11/10/16 06:00 History Albuterol 2.5MG/Ipratrop 0.5MG 3 ml INH Q4H PRN PRN #120 neb 08/26/16 11/10/16 11/09/16 21:00 Rx [Duoneb (A & A)] - History of Present Illness-Resp Nature of Presenting Problem: 61 Y/O M presents to ED with Respiratory Distress. Pt states that he quit smoking 10 years ago. Pt doesn't have a PCP and Oxygen company would not refill his O2 and ran out of O2 2 days ago. Pt has increased wheezing and moderate respiratory distress. Pt can't llay down and has to sit up. Quality of Pain: reports: tightness Severity in ED: reports: severe Onset/Duration: reports: 2 days ago Timing: reports: still present, getting worse Episode Frequency: chronic episodes Current Respiratory Medication Therapy: Initiated see nurses note, Initiated other (O2) Modifying Factors: improves with: sitting upright. worse with: lying down Associated Symptoms: reports: shortness of breath, wheezing. denies: heart racing Similar Symptoms Previously?: Yes Review of Systems - Adult - REVIEW OF SYSTEMS - ADULT Constitutional: denies: chills, fever Eyes: reports: no symptoms reported Ears, Nose, Mouth & Throat: reports: no symptoms reported Cardiovascular: denies: chest pain Respiratory: reports: shortness of breath, wheezing. denies: chronic cough Gastrointestinal: reports: no symptoms reported Genitourinary: reports: no symptoms reported Musculoskeletal: reports: no symptoms reported Integumentary: reports: no symptoms reported Neurological: reports: no symptoms reported Psychiatric: reports: no symptoms reported Endocrine: reports: no symptoms reported Hematologic/Lymphatic: reports: no symptoms reported Allergic/Immunologic: reports: no symptoms reported All Other Systems: Reviewed and Negative Past History - Adult - PAST MEDICAL HISTORY-ADULT Review of Records: reports: Old Records Reviewed, Nursing Assessment Review, Medications Reviewed, Social history reviewed & non-contributory. Major Childhood Illnesses: reports: denies history Cardiovascular: reports: HTN Respiratory: reports: COPD Gastrointestinal: reports: denies history Obstetrical/Gynecological: reports: denies history Genitourinary: reports: denies history Musculoskeletal: reports: denies history Neurological: reports: denies history Endocrine/Immune: reports: denies history Other Conditions: reports: MRSA - PRIOR SURGERIES/PROCEDURES Surgical/Procedure History: reports: orthopedic (extremity) (clavicle) - PRIOR HOSPITALIZATIONS Prior Hospitalizations: reports: none - IMMUNIZATION STATUS Childhood Immunizations: See Nurse Assessment Flu Vaccine: See Nurse Assessment - FAMILY HISTORY Family History: reviewed, not pertinent - SOCIAL HISTORY Smoking: quit greater than 1 year, cigarettes, less than 1 pack/day Alcohol Use Frequency: occasionally Physical Exam-General - CONSTITUTIONAL General Appearance: alert, moderate distress - EYES Eyes: PERRL/EOMI, pink conjunctivae, anisocoria - HEAD, EARS, NOSE, MOUTH & THROAT HENMT: normal ENT inspection, TMs normal, pharynx normal - NECK Neck: non-tender, full range of motion, supple, normal inspection - RESPIRATORY Respiratory: respiratory distress (moderate), wheezing - CARDIOVASCULAR Cardiovascular: normal peripheral pulses, regular rate, rhythm - GASTROINTESTINAL (ABDOMEN) Abdominal Exam: non tender, soft - LYMPHATIC Lymphatic: no adenopathy - MUSCULOSKELETAL Back Exam: no CVA tenderness, no vertebral tenderness Extremity: normal range of motion, non-tender, normal gait - SKIN Integumentary: normal color, normal turgor - NEUROLOGIC Neurologic: grossly normal - PSYCHIATRIC Psych/Mental Status: normal mood/affect, normal thought content, normal thought process, oriented x 3 Progress - PLAN OF CARE/RESULTS Progress/Plan/Lab Results: Vital Signs - 8 hr 11/10/16 22:40 11/10/16 23:04 Pulse Rate 87 96 H Respiratory Rate 22 20 Blood Pressure 155/97 157/108 O2 Sat by Pulse Oximetry 84 L 92 L Laboratory Results - last 24 hr 11/10/16 11/10/16 11/10/16 23:00 23:00 23:00 WBC 8.44 RBC 4.09 L Hgb 13.0 L Hct 39.2 L MCV 95.8 MCH 31.8 H MCHC 33.2 RDW Std Deviation 12.6 Plt Count 342 MPV 9.1 Immature Gran % (Auto) 0.0 Neut % (Auto) 56.5 Lymph % (Auto) 23.9 Price % (Auto) 7.9 Eos % (Auto) 10.9 H Baso % (Auto) 0.8 Immature Gran # (Auto) 0.00 Neut # (Auto) 4.76 Lymph # (Auto) 2.02 Price # (Auto) 0.67 H Eos # (Auto) 0.92 H Baso # (Auto) 0.07 Specimen Type Sample Site pH pCO2 pO2 HCO3 Base Excess Oxyhemoglobin ABG O2 Sat (Calculated) ABG O2 Saturation ABG Carboxyhemoglobin ABG Methemoglobin Kyrie Test A-a O2 Difference Total Hemoglobin Lactate Liter Flow Blood Gas Modality FiO2 % Sodium 133 L Potassium 4.8 Chloride 88 L Carbon Dioxide 32 Anion Gap 13 BUN 12 Creatinine 1.1 Estimated GFR/1.73 m2 > 60 BUN/Creatinine Ratio 11 Glucose 95 Calculated Osmolality 266 Calcium 9.5 Total Bilirubin 0.27 AST 17 ALT 10 Alkaline Phosphatase 80 Qpu-[id number]-[id number] Pept 169 Total Protein 8.1 Albumin 4.1 Globulin 4.0 Albumin/Globulin Ratio 1.0 11/10/16 23:49 WBC RBC Hgb Hct MCV MCH MCHC RDW Std Deviation Plt Count MPV Immature Gran % (Auto) Neut % (Auto) Lymph % (Auto) Price % (Auto) Eos % (Auto) Baso % (Auto) Immature Gran # (Auto) Neut # (Auto) Lymph # (Auto) Price # (Auto) Eos # (Auto) Baso # (Auto) Specimen Type ARTERIAL Sample Site R BRACHIAL pH 7.37 pCO2 58 H* pO2 73 HCO3 29.8 H Base Excess 6.4 H Oxyhemoglobin 93.0 L ABG O2 Sat (Calculated) 17.9 ABG O2 Saturation 96.2 ABG Carboxyhemoglobin 2.40 ABG Methemoglobin 0.9 Kyrie Test YES A-a O2 Difference 111.0 Total Hemoglobin 13.7 Lactate 0.90 Liter Flow 4.0 Blood Gas Modality CANNULA FiO2 % 36.0 Sodium Potassium Chloride Carbon Dioxide Anion Gap BUN Creatinine Estimated GFR/1.73 m2 BUN/Creatinine Ratio Glucose Calculated Osmolality Calcium Total Bilirubin AST ALT Alkaline Phosphatase Orj-E-Szfoounjufo Pept Total Protein Albumin Globulin Albumin/Globulin Ratio Orders Category Date Time Status CHEST-PORTABLE [RAD] Stat Exams 11/10/16 23:06 Taken ABG [RESP] Routine Lab 11/10/16 23:49 Completed CBC WITH ELECTRONIC DIFF [HEME] Stat Lab 11/10/16 23:00 Completed CMP [COMPREHENSIVE METABOLIC PANEL] [CHEM] Stat Lab 11/10/16 23:00 Completed pro-bnp [PRO B-NATRIURETIC PEPTIDE] Stat Lab 11/10/16 23:00 Completed Albuterol 2.5MG/Ipratrop 0.5MG [Duoneb (A & A)] Med 11/10/16 23:05 Discontinued 3 ml INH NOW ONE Albuterol [Albuterol Neb] Med 11/10/16 23:05 Discontinued 5 mg INH NOW ONE Albuterol [Albuterol Neb] Med 11/11/16 00:19 Discontinued 5 mg INH NOW ONE Methylprednisolone Sod Succ [Solu-Medrol] Med 11/10/16 23:05 Discontinued 125 mg IV NOW ONE Aerosol Treatments Routine Oth 11/10/16 23:05 Active Aerosol Treatments Routine Oth 11/11/16 00:20 Active Aerosol Treatments Stat Oth 11/10/16 23:05 Active Aerosol Treatments Stat Oth 11/11/16 00:20 Active mat [Aerosol Treatments] Stat Oth 11/10/16 22:53 Active EKG [EKG] Stat Ther 11/10/16 22:42 Ordered Result Diagrams: 11/10/16 23:00 11/10/16 23:00 - EKG 1 Time of EKG reading by physician:: 22:46 EKG Read and Signed by:: Faraz Bourne EKG Interpretation (*Must complete 3 of following elements*): Normal Rate: 87 Rhythm: NSR with sinus arrhythmia Comments: Normal ECG - XRAY 1 XRAY Study: Chest Impression: Abnormal XRAY Interpretation: COPD Departure - Departure Date of Disposition Decision: 11/11/16 Time of Disposition Decision: 00:25 DIAGNOSIS: COPD with exacerbation Disposition: ADMITTED INPATIENT 09 Certified Medical Emergency: Emergent Condition: Fair Referrals and Follow-Ups: Georgi Montague MD [Primary Care Provider] - - Critical Care Note This patient required my direct & personal management of CC.: No Attestation - Physician/ ANTHONY Attestation Patient care was provided by Advanced Practice Provider:: No The physician spent face to face time with patient:: Yes Advanced Practice Provider documentation review:: Supervising physician onsite and consulted in the evaluation and care of this patient. The physician did have a face to face encounter with the patient. This chart was documented by the indicated scribe, (Cary Terry Scribe) and accurately reflects the services I performed and decisions made by me, Faraz Bourne MD, as attested by the provider's signature.
[2016-11-11] MEDS ORDERED: TYLENOL PO PRN (02:55)
[2016-11-11] MEDS ORDERED: SOLU-MEDROL IV SCH (02:55)
[2016-11-11] MEDS ORDERED: ZOFRAN IV PRN (02:55)
[2016-11-11] MEDS ORDERED: NS 1,000 ML IV ONE (02:55)
[2016-11-11] MEDS ORDERED: LEVAQUIN PO SCH (03:00)
[2016-11-11] MEDS: DUONEB (A & A) INH PRN ×2 (03:10→07:57)
--- NOTE | 2016-11-11 04:10 | HISTORY AND PHYSICAL ---
PRIMARY CARE PROVIDER: Georgi Montague MD CHIEF COMPLAINT: Shortness of breath/I ran out of my oxygen. HISTORY OF PRESENT ILLNESS: This is a 61-year-old male who is well known to our service. He has multiple admissions for COPD with exacerbation. He quit smoking roughly 10 years ago but is oxygen dependent using 4 L of nasal cannula at home. He stated that the oxygen company did not refill his O2 and he has been out for 2 days. He had increased wheezing and shortness of breath, difficulty lying down. He did report tightness in his chest but no chest pain. States that he has been continuing to use his inhalers; however, he has continued to have admissions to the hospital roughly every 2 months. He was given nebulizer treatments and Solu- Medrol in the emergency room and continued to have wheezing and respiratory distress. He will be admitted inpatient to the medical floor for further evaluation and treatment. PAST MEDICAL HISTORY: 1. COPD, with home O2. 2. Hypertension. 3. Hepatitis C. 4. Chronic opioid use. The patient is on Suboxone. 5. History of pericardial effusion. 6. Frequent admissions for COPD exacerbation. Last on 09/23/2016. Prior to that, 08/25/2016. PREVIOUS SURGICAL HISTORY: None. ALLERGIES: Penicillin. SOCIAL HISTORY: Former smoker. Stopped smoking 10 years ago. Has a history of social alcohol; however, he does not use alcohol at this time. Uses chronic opioids in the form of Suboxone daily for pain. FAMILY HISTORY: Positive for coronary artery disease in first-degree relatives. HOME MEDICATIONS: 1. Spiriva 1 puff inhalation daily. 2. Advair 500/50 one inhalation daily. 3. Suboxone 8/2 q.12 hours. 4. Prilosec 20 mg p.o. daily. 5. Lisinopril 40 mg p.o. daily. 6. Hydrochlorothiazide 25 mg p.o. daily. 7. DuoNeb q.4 hours. REVIEW OF SYSTEMS: Fourteen point review of systems conducted with the patient. Pertinent positives listed above in the HPI. Patient did also mention he had a cough with white sputum. Other pertinent positives were placed in the HPI. All other systems reviewed and found to be negative. PHYSICAL EXAMINATION: VITAL SIGNS: Pulse 96, respirations 20, blood pressure 157/108, oxygen saturation 93% on 4 L nasal cannula. GENERAL: Pleasant 61-year-old male lying in the ER stretcher in very mild respiratory distress with audible wheezing. Able answer all questions appropriately. HEENT: Head is atraumatic, normocephalic. Pupils equal, round, reactive to light. Extraocular eye movement is intact. Sclerae is anicteric. Conjunctivae is mildly pale. Oral mucosa is dry. NECK: Supple. No JVD. No thyromegaly. Trachea is midline. No cervical lymphadenopathy. CARDIAC: S1-S2 appreciated. No murmurs, gallops, rubs. LUNGS: Decreased bilaterally. Prolonged expiratory phase. Expiratory wheezing noted throughout the lung hope. No rhonchi, no rales. Symmetrical rise and fall with respirations. Mild abdominal accessory muscle use with respirations. ABDOMEN: Protuberant. Soft, nondistended, nontender. Bowel sounds present in all 4 quadrants. Normoactive. No pulsatile mass. No organomegaly. EXTREMITIES: One plus pitting edema bilateral lower extremities. No clubbing or cyanosis. Two plus pedal pulses bilaterally. GENITOURINARY: No bladder distention. Patient voids. Otherwise deferred. NEUROLOGICAL: Alert and orient x3. Otherwise nonfocal examination. No focal motor deficits noted. SKIN: Warm, dry and intact. No acute lesions or rash. DIAGNOSTIC DATA: Chest x-ray: Chronic COPD changes. No infiltrates. LABORATORY DATA: WBC 8.44, hemoglobin 13, hematocrit 39.2, platelet count 242, 000. ABG pH 7.37, pCO2 58, PO2 73, bicarb 29.8. This was on 4 L nasal cannula, which is his home O2. Sodium 133, potassium 4.8, chloride 88, carbon dioxide 32, BUN 12, creatinine 1.1, glucose 95. ASSESSMENT AND PLAN: 1. Chronic obstructive pulmonary disease exacerbation. Continue patient's inhaled steroids and long-acting beta agonist. Continue DuoNebs and theophylline 300 mg p.o. daily. Add Singulair 10 mg p.o. at bedtime. We will give Solu-Medrol 60 mg IV q.6 hours. The patient also complained of chronic bronchitis. We will give Levaquin 500 mg p.o. daily for 3 days. 2. Chronic hepatitis C. Aware. 3. Chronic opioid use with chronic pain syndrome. Continue Suboxone. 4. Hypertension. Continue lisinopril and thiazide diuretic. 5. Mild hyponatremia. We will give normal saline at 75 mL an hour for the next 24 hours. 6. Further recommendations per patient clinical course. Dictated by RADHA Langley for Radha Chow MD Seen,examined and discussed case with ENERGY AND CONSERVATION TECHNICIAN. cc: RADHA Langley MD Gregory S. Cheatham, MD [facility]
--- NOTE | 2016-11-11 05:22 | EKG Report ---
Test Performed on : 11/10/2016 10:46:35 PM Test Reason : sob Blood Pressure : / mmHG Vent. Rate : 087 BPM Atrial Rate : 087 BPM P-R Int : 182 ms QRS Dur : 076 ms QT Int : 348 ms P-R-T Axes : 074 040 084 degrees QTc Int : 418 ms Normal sinus rhythm. with sinus arrhythmia. Normal ECG When compared with ECG of 23-SEP-2016 16:42, No significant change was found Unconfirmed Result
[2016-11-11] MEDS: LOVENOX SUBQ SCH (05:33)
[2016-11-11] MEDS: SOLU-MEDROL IV SCH ×3 (05:34→17:50)
[2016-11-11] MEDS: PRILOSEC PO SCH ×2 (05:34→06:23)
[2016-11-11] MEDS ORDERED: ADVAIR 500/50 DISKUS INH SCH (07:30)
--- NOTE | 2016-11-11 07:45 | Diag Imaging Result Doc PS360 ---
EXAM: CHEST-PORTABLE HISTORY: sob,wheezing TECHNIQUE: AP portable at 2315 COMMENT: There is an azygos lobe. There is a linear opacity over the right base which is slightly more prominent than on the previous study of 09/23/2016. This may be due to atelectasis. The heart size and pulmonary vascularity remain within normal limits. IMPRESSION: Atelectasis versus fibrosis right lower lobe. Advise follow-up with PA and lateral radiographs if possible. Electronically signed by Onofre Flynn 11/11/2016 7:43 AM
[2016-11-11] MEDS: SPIRIVA INH SCH (07:57)
[2016-11-11] MEDS: HYDROCHLOROTHIAZIDE PO SCH (10:50)
[2016-11-11] MEDS: PRINIVIL PO SCH (10:50)
[2016-11-11] MEDS: SUBOXONE 8 MG/2 MG SL SCH ×2 (11:03→21:10)
[2016-11-11] MEDS: THEO-24 PO SCH (11:06)
[2016-11-11] MEDS ORDERED: LEVAQUIN 750 MG/D5W 750 MG/150 ML IVPB IV SCH (11:15)
[2016-11-11] MEDS: DUONEB (A & A) INH SCH ×4 (11:21→23:00)
[2016-11-11] MEDS: ADVAIR 500/50 DISKUS INH SCH (19:30)
[2016-11-11] MEDS ORDERED: SINGULAIR PO SCH (21:00)
[2016-11-12] MEDS: SOLU-MEDROL IV SCH ×2 (00:02→06:03)
[2016-11-12] MEDS: DUONEB (A & A) INH SCH ×2 (02:55→08:21)
[2016-11-12] MEDS: LOVENOX SUBQ SCH (06:04)
[2016-11-12 06:14] LABS: HEMATOCRIT 38.4 % (42.0-52.0); HEMOGLOBIN 12.4 g/dL (14.0-18.0); IMM GRAN# 0.02 X1000 (0.0-0.04); IMM GRAN% 0.1 % (0.0-0.5); LYMPH# 0.58 X1000 (1.2-3.4); LYMPH% 3.2 % (20.5-51.1); MANUAL DIFF NEEDED? YES; MCH 31.6 PG (27-31); MCHC 32.3 g/dL (33-37); MONO# 0.88 X1000 (0.11-0.59); MONO% 4.9 % (1.7-9.3); MPV 9.1 FL (7.4-10.4); NEUT% 91.8 % (42.2-75.2); PLT 332 X1000 (130-400); RBC 3.92 XMIL (4.7-6.1)
[2016-11-12 06:34] LABS: AGAP 10; BUN 17 mg/dL (8-22); CALCIUM 9.8 mg/dL (8.8-10.2); CHLORIDE 90 mmol/L (98-107); COSMO 271; POTASSIUM 4.2 mmol/L (3.5-5.1); SODIUM 132 mmol/L (136-145); TCO2 32 mmol/L (25-35)
[2016-11-12 06:58] LABS: LYMPHS 4 % (21-51); MONO 2 % (1-9)
[2016-11-12 07:58] VITALS: BP 150/84
[2016-11-12] MEDS: ADVAIR 500/50 DISKUS INH SCH (08:22)
[2016-11-12] MEDS: SPIRIVA INH SCH (08:22)
[2016-11-12] MEDS: HYDROCHLOROTHIAZIDE PO SCH (08:56)
[2016-11-12] MEDS: SUBOXONE 8 MG/2 MG SL SCH (08:56)
[2016-11-12] MEDS: PRINIVIL PO SCH (08:57)
[2016-11-12] MEDS: THEO-24 PO SCH (08:57)
[2016-11-12] MEDS ORDERED: SOLU-MEDROL IV SCH (13:00)
[2016-11-12] MEDS ORDERED: PRILOSEC PO SCH (21:00)
--- NOTE | 2016-11-13 10:36 | DISCHARGE SUMMARY ---
ADMISSION DATE: 11/11/2016 DISCHARGE DATE: 11/12/2016 CONSULTATIONS: None. PERTINENT PROCEDURES: Chest x-ray showed atelectasis versus fibrosis of the right lower lobe. Advised to follow up with PA and lateral. DISCHARGE DIAGNOSES: 1. Chronic obstructive pulmonary disease exacerbation. The patient is being discharged on p.o. Levaquin. He will continue his home DuoNebs and theophylline and Medrol Dosepak. Follow up with his PCP on Wednesday. 2. Leukocytosis secondary to IV steroids. Dr. Boles tried to get the patient to stay 1 more day; however, he refused. He will need to follow up with his PCP, Dr. Montague on Wednesday to repeat CBC. 3. Chronic opiate use with chronic pain syndrome. Continue Suboxone. 4. Hypertension. Continue lisinopril and Dyazide diuretic. 5. Mild hyponatremia. The patient was given IV fluids. Remains hyponatremic. Again, the patient refused to stay for further treatment. HOSPITAL COURSE: Mr. Mccormack is a 61-year-old male known to our service for multiple admissions for COPD exacerbation. He quit smoking 10 years ago. He is oxygen dependent using 4 L nasal cannula at home. He stated that the oxygen company did not refill his O2 and he has been out for 2 days. He had increased wheezing and shortness of breath, difficulty lying down. He did report tightness in his chest but no chest pain. He did continue his inhalers; however, he continued to have admissions to the hospital roughly every 2 months. He was given nebulizer treatments and Solu-Medrol in the emergency room and continued to have wheezing and respiratory distress. He was admitted inpatient to the medical floor for further evaluation and treatment. Continued on his inhaled steroids and long-acting beta agonist, DuoNebs, theophylline, added Singulair at bedtime as well as IV steroids and p.o. Levaquin, and continued his Suboxone for his chronic pain syndrome and his diuretic for his hypertension. For his hyponatremia he was started on normal saline. The patient today is refusing to stay in the hospital. He is wanting to go home. His white count did go from 8.44 to 18.4. We do believe this is secondary to his IV steroids. He is being discharged on all his home medications. He is being given a prescription for Levaquin as well as a Medrol Dosepak and Singulair. Dr. Boles has requested that he follow up with Dr. Montague on Wednesday to repeat a CBC. He has agreed to do so. VITAL SIGNS AT TIME OF DISCHARGE: Temperature is 98.4 degrees, heart rate 80, respirations 20, blood pressure 150/84, O2 is 98% on 4 L nasal cannula. DISCHARGE DIET: Regular. DISCHARGE MEDICATIONS: 1. DuoNeb 3 mL inhaled q.4 hours p.r.n. 2. Suboxone 12 mg p.o. q.12 hours. 3. Advair inhaler 1 each inhaled q.a.m. 4. Hydrochlorothiazide 25 mg tablet p.o. daily. 5. Levaquin 750 mg p.o. daily. 6. Lisinopril 40 mg p.o. daily. 7. Medrol dose pack 4 mg p.o. as directed. 8. Singulair 10 mg p.o. at bedtime. 9. Prilosec 20 mg p.o. daily. 10. Spiriva 1 puff inhaled RT daily. FOLLOWUP: Mr. Mccormack is being discharged home with p.o. antibiotics, Medrol Dosepak and Singulair. He will need to follow up with Dr. Montague on Wednesday for repeat CBC. He can return to the ED for any worsening of symptoms. Dictated by RADHA Miner for Omar Hilliard MD Addendum : Patient seen and examined. Agree with RADHA note. It reflects my assessment and plan. Patient clinically is doing fine and wanted to go home. WBC went up because of steroids and I told him he needs to stay one more day to check CBC. Patient said he prefers to go see his primary carre physician Dr. Montague next wednesday and have it repeated. Patient advised that if he start having shortness of breath, fever or cough he should return to ER. He acknowledged understanding. cc: MD Georgi Day MD MTDD
== END 2016-11-12 12:43 | disposition home or self-care (01) ==
LOC: ED 22:38 → 3N 11-11 02:37 → SUATTDRO 11-11 02:37
PROVIDERS: ATTEND Internal Medicine